=== PATIENT | female | born 1970 | race Caucasian/White ===

== ENCOUNTER → 2016-09-22 | Outpatient (CLI) | payer MEDICAID ==
[2016-09-22 11:09] LABS: ALT 30 U/L (9-52); AST 39 U/L (14-36); Alkaline Phosphatase 96 U/L (38-126); Anion Gap 11 mmol/L; Blood Urea Nitrogen 13 mg/dL (7-17); Calcium 9.4 mg/dL (8.4-10.2); Carbon Dioxide 30 mmol/L (22-30); Chloride 99 mmol/L (98-107); Cholesterol 173 mg/dL (<200); Glucose 148 mg/dL (74-99); HDL Cholesterol 66 mg/dL (40-60); Non-African American GFR(MDRD) >60 (>60 ml/min/1.73 sqM); Potassium 4.5 mmol/L (3.5-5.1); Sodium 140 mmol/L (137-145); Total Bilirubin 1.5 mg/dL (0.2-1.3); Total Protein 7.7 g/dL (6.3-8.2); Triglycerides 164 mg/dL (<150)
== END | disposition home or self-care (01) ==
LOC: LABWHC1 10:27
PROVIDERS: ATTEND Internal Medicine Endocrinology, Diabetes & Metabolism
DX: E11.65 Type 2 diabetes mellitus with hyperglycemia (principal); E03.8 Other specified hypothyroidism
CPT/HCPCS: 36415; 80053; 80061; 82043; 84443

== ENCOUNTER → 2017-10-28 | Outpatient (CLI) | payer MEDICAID ==
--- NOTE | 2017-10-28 09:09 | US ---
EXAMINATION TYPE: US pelvic complete DATE OF EXAM: 10/28/2017 COMPARISON: NONE CLINICAL HISTORY: N95.0 PMB. July, before that about a year before menstrual bleeding. TECHNIQUE: Transabdominal pelvic ultrasound Date of LMP: EXAM MEASUREMENTS: Uterus: 8.6 x 2.9 x 1.7 cm Endometrial Stripe: 0.3 cm Right Ovary: 1.7 x 0.8 x 0.8 cm Left Ovary: 2.0 x 1.6 x 1.4 cm Morbidly obese patient. 1. Uterus: Anteverted, nabothians noted in cervix 2. Endometrium: wnl 3. Right Ovary: wnl 4. Left Ovary: wnl 5. Bilateral Adnexa: wnl 6. Posterior cul-de-sac: wnl Few tiny nabothian cysts are seen in cervix. Endometrium is not well seen and presumed atrophic. No f ree fluid is seen in pelvic cul-de-sac. Both ovaries are identified and the adnexa. No suspicious adnexal lesions are seen. IMPRESSION: Slightly suboptimal study without transvaginal evaluation. No suspicious endometrial thic kening seen on transabdominal ultrasound investigation.
== END | disposition home or self-care (01) ==
LOC: RADUSWWP 07:48
PROVIDERS: ATTEND Obstetrics & Gynecology
DX: N95.0 Postmenopausal bleeding (principal)
CPT/HCPCS: 76856

== ENCOUNTER → 2017-12-23 | Outpatient (CLI) | payer MEDICAID ==
--- NOTE | 2017-12-23 13:30 | BD ---
EXAMINATION TYPE: Axial Bone Density DATE OF EXAM: 12/23/2017 COMPARISON: NONE CLINICAL HISTORY: Postmenopausal female. Osteoporosis screening. Height: 66 IN Weight: 253 LBS RISK FACTORS HISTORY OF: Active: YES Postmenopausal woman: AGE 46 MEDICATIONS: Thyroid Medications: YES Which medication: Levothyroxine How Lon YRS Additional Medications: VIT D, LEVOTHYROXINE,ACTOS, INVOKANA, METFORMIN,LANTUS, LOW DOSE ASPIRIN, BIO TIN, EXAM MEASUREMENTS: Bone mineral densitometry was performed using the [employer] System. Bone mineral density as measured about the Lumbar spine is: ----- L1-L4(G/cm2): 1.161 T Score Values are as follows: ----- L2: -0.4 ----- L3: -0.4 ----- L4: -0.1 ----- L1-L4: -0.2 Bone mineral density BASELINE Bone mineral density about the R hip (g/cm2): 1.033 Bone mineral density about the L hip (g/cm2): 0.953 T Score values are as follows: -----R Neck: 0.0 -----L Neck: -0.6 -----R Total: 0.9 -----L Total: 0.8 Bone mineral density BASELINE IMPRESSION: Normal (Values between +1 and -1 indicate normal bone mass). Consider repeating this study in 5 year s or sooner if there is some new clinical indication. NOTE: T-SCORE=SD OF THE YOUNG ADULT MEAN.
--- NOTE | 2017-12-28 13:55 | MM ---
Reason for exam: screening (asymptomatic). Last mammogram was performed 9 years and 5 months ago. History: Patient is nulliparous. Took progesterone for 1 month. Physical Findings: A clinical breast exam by your physician is recommended on an annual basis and results should be correlated with mammographic findings. MG 3D Screening Mammo W/Cad Bilateral CC and MLO view(s) were taken. Prior study comparison: April 03, 2015, mammogram, performed at [facility]. July 27, 2008, bilateral digital screening mammogram. May 25, 2003, bilateral screening mammogram. There are scattered fibroglandular densities. Benign right calcified oil cysts. No suspicious abnormality. No significant changes when compared with prior studies. ASSESSMENT: Benign, BI-RAD 2 RECOMMENDATION: Routine screening mammogram of both breasts in 1 year.
== END | disposition home or self-care (01) ==
LOC: RADMAMWWP 09:49
PROVIDERS: ATTEND Obstetrics & Gynecology
DX: Z12.31 Encounter for screening mammogram for malignant neoplasm of breast (principal); Z13.820 Encounter for screening for osteoporosis
CPT/HCPCS: 77063; 77067; 77080

== ENCOUNTER → 2019-04-14 | Outpatient (CLI) | payer BC ==
--- NOTE | 2019-04-17 13:25 | MM ---
Reason for exam: screening (asymptomatic). Last mammogram was performed 1 year and 4 months ago. History: Patient is postmenopausal and is nulliparous. Took progesterone for 1 month. Physical Findings: A clinical breast exam by your physician is recommended on an annual basis and results should be correlated with mammographic findings. MG 3D Screening Mammo W/Cad Bilateral CC and MLO view(s) were taken. Prior study comparison: December 23, 2017, bilateral MG 3d screening mammo w/cad. April 03, 2015, mammogram, performed at [facility]. There are scattered fibroglandular densities. No significant changes when compared with prior studies. ASSESSMENT: Negative, BI-RAD 1 RECOMMENDATION: Routine screening mammogram of both breasts in 1 year.
== END | disposition home or self-care (01) ==
LOC: RADMAMWWP 17:10
PROVIDERS: ATTEND Family Medicine
DX: Z12.31 Encounter for screening mammogram for malignant neoplasm of breast (principal)
CPT/HCPCS: 77063; 77067

== ENCOUNTER 2019-07-28 09:38 | Day surgery (SDC) | payer BC ==
[2019-07-24 08:37] VITALS: BMI 41.4
[~2019-07-28 09:38] MED LIST: LACTATED RINGERS 1,000 ML IV SCH; LIDOCAINE 1% 20 ML VIAL (10MG/ML) FOR IV START INTRADERMA PRN
[2019-07-28 09:59] VITALS: RESP 16; TEMP 97.2
[2019-07-28 10:05] LABS: Glucose,Whole Blood 127 mg/dL (75-99)
[2019-07-28] MEDS ORDERED: PROPOFOL 10 MG/ML 20 ML VIAL IV ONE (10:56)
--- NOTE | 2019-07-28 11:21 | P.PCN ---
Date of Procedure: 07/28/19 Procedure(s) Performed: BRIEF HISTORY: Patient is a 49-year-old pleasant, scheduled for an elective colonoscopy as a part of screening for colon rectal neoplasia. PROCEDURE PERFORMED: Colonoscopy. PREOPERATIVE DIAGNOSIS: Screening for colon cancer. IV sedation per Anesthesia. PROCEDURE: After informed consent was obtained, the patient, was brought into the endoscopy unit. IV sedation was administered by Anesthesia under continuous monitoring. Digital rectal examination was normal. Initially the Olympus CF-160 flexible video colonoscope was then inserted in the rectum, gradually advanced into the cecum without any difficulty. Careful examination was performed as the scope was gradually being withdrawn. Ileocecal valve and the appendiceal orifice were visualized and appeared normal. Prep was excellent. Mucosa of the cecum, ascending colon, transverse colon, descending colon, sigmoid colon, and rectum appeared normal. Scattered sigmoid diverticulosis seen. Retroflexion was performed in the rectum and no lesions were seen. The patient tolerated the procedure well. IMPRESSION: Normal-appearing colon from rectum to cecum with no evidence of colon rectal neoplasia. RECOMMENDATIONS: Findings of this examination were discussed with the patient is well as her family. She was advised to have a repeat colonoscopy in 10 years..
[2019-07-28 11:46] VITALS: BP 132/76; PULSE 55
== END 2019-07-28 11:58 | disposition home or self-care (01) ==
LOC: ORWHC2ENDO 09:38
PROVIDERS: ATTEND Internal Medicine Gastroenterology
DX: Z12.11 Encounter for screening for malignant neoplasm of colon (principal); K57.30 Diverticulosis of large intestine without perforation or abscess without bleeding; I10 Essential (primary) hypertension; E11.9 Type 2 diabetes mellitus without complications; E07.9 Disorder of thyroid, unspecified; Z79.82 Long term (current) use of aspirin; Z79.890 Hormone replacement therapy; Z79.84 Long term (current) use of oral hypoglycemic drugs; Z79.899 Other long term (current) drug therapy; Z98.890 Other specified postprocedural states
CPT/HCPCS: J2704; G0121

== ENCOUNTER → 2021-08-13 | Outpatient (CLI) | payer BC ==
[~2021-08-13] MED LIST changes: +BAMLANIVIMAB (EUA) 700 MG, ETESEVIMAB (EUA) 1,400 MG in SODIUM CHLORIDE 0.9% 100 ML IVPB ONE; -LACTATED RINGERS 1,000 ML IV SCH; -LIDOCAINE 1% 20 ML VIAL (10MG/ML) FOR IV START INTRADERMA PRN; +SODIUM CHLORIDE 0.9% 50 ML IVPB ONE; +SODIUM CHLORIDE 0.9% 500 ML 500 ML in EMPTY BAG 1 BAG IV PRN
[2021-08-13 08:26] VITALS: TEMP 97.6
[2021-08-13 09:22] VITALS: BP 118/76; PULSE 58; RESP 16
== END ==
LOC: PROCWHC3 07:49
PROVIDERS: ATTEND Family Medicine
DX: U07.1 COVID-19 (principal); E66.9 Obesity, unspecified; E11.9 Type 2 diabetes mellitus without complications; Z68.41 Body mass index [BMI] 40.0-44.9, adult
CPT/HCPCS: 96360; J3490; M0245

== ENCOUNTER → 2024-01-18 | Outpatient (CLI) | payer OTHER ==
--- NOTE | 2024-01-19 10:09 | MM ---
Reason for Exam: Screening (asymptomatic). Last mammogram was performed 4 year(s) and 9 month(s) ago. Patient History: Menarche at age 11. Patient has no children. Postmenopausal. Progesterone for 1 month. Risk Values: Dilcia 5 year model risk: 1.4%. NCI Lifetime model risk: 8.9%. Prior Study Comparison: 04/03/2015 Screening Mammogram, [facility]. 12/23/2017 Bilateral Screening Mammogram, [facility]. 04/14/2019 Bilateral Screening Mammogram, [facility]. Tissue Density: There are scattered areas of fibroglandular density. Findings: Analyzed By CAD. There is no suspicious group of microcalcifications or new suspicious mass in either breast. Overall Assessment: Negative, BI-RAD 1 Management: Screening Mammogram of both breasts in 1 year. . Patient should continue monthly self-breast exams. A clinical breast exam by your physician is recommended on an annual basis. This exam should not preclude additional follow-up of suspicious palpable abnormalities. Note on Dilcia scores and lifetime risk: 1. A Dilcia score greater than 3% is considered moderate risk. If this is the case, consider specialist referral to assess eligibility for a risk reducing agent. 2. If overall lifetime risk for the development of breast cancer is 20% or higher, the patient may qualify for future screening with alternating mammogram and breast MRI. Electronically signed and approved by: Matthew Carter M.D. Radiologis
== END | disposition home or self-care (01) ==
LOC: RADMAMWWP 06:54
PROVIDERS: ATTEND Family Medicine
DX: Z12.31 Encounter for screening mammogram for malignant neoplasm of breast (principal); Z78.0 Asymptomatic menopausal state
CPT/HCPCS: 77063; 77067